=== PATIENT | female | born 1990 | race Caucasian/White ===

== ENCOUNTER 2024-05-27 13:20 | Outpatient (CLI) | payer MEDICAID ==
[~2024-05-27 13:20] MED LIST: SODI30SP3 BOTHNARES
== END 2024-05-27 23:59 | disposition home or self-care (01) ==
LOC: MRI 13:20
PROVIDERS: ATTEND Nurse Practitioner Family
DX: R20.2 Paresthesia of skin (principal); R29.2 Abnormal reflex; N39.46 Mixed incontinence
CPT/HCPCS: 70551

== ENCOUNTER 2024-06-15 16:42 | Emergency (ER) | payer MEDICAID ==
[~2024-06-15] VITALS: Ht 165.1 cm; Wt 66.2 kg
[2024-06-15 17:59] LABS: BASOPHILS # (AUTO) 0.1 X10'3 (0-0.2); BASOPHILS % (AUTO) 1.3 % (0-1); EOSINOPHILS # (AUTO) 0.3 X10'3 (0-0.9); EOSINOPHILS % (AUTO) 7.5 % (0-6); HEMATOCRIT 37.8 % (35.0-45.0); HEMOGLOBIN 12.7 g/dl (12.0-16.0); LYMPHOCYTES % (AUTO) 21.3 % (21-51); MEAN CORPUSCULAR HEMOGLOBIN 28.7 PG (27.0-31.0); MEAN CORPUSCULAR HGB CONC 33.6 g/dL (33.0-36.5); MEAN CORPUSCULAR VOLUME 85.4 FL (78-98); MEAN PLATELET VOLUME 8.4 FL (7.4-10.4); MONOCYTES # (AUTO) 0.7 X10'3 (0-0.9); MONOCYTES % (AUTO) 16.2 % (2-12); NEUTROPHILS # (AUTO) 2.4 X10'3 (1.8-7.7); NEUTROPHILS % (AUTO) 53.7 % (42-75); PLATELET COUNT 265 X10'3 (140-440); RED BLOOD COUNT 4.42 X10'6 (4.20-5.60); RED CELL DISTRIBUTION WIDTH 13.5 % (11.5-14.5); WHITE BLOOD COUNT 4.5 X10'3 (4.5-11.0)
[2024-06-15 18:05] LABS: ALANINE AMINOTRANSFERASE 21 U/L (12-78); ALBUMIN 3.6 G/DL (3.4-5.0); ALBUMIN/GLOBULIN RATIO 1.1 (1.1-1.5); ALKALINE PHOSPHATASE 83 IU/L (46-116); ANION GAP 8 (8-16); ASPARTATE AMINO TRANSFERASE 26 U/L (10-37); BILIRUBIN,TOTAL 0.3 MG/DL (0.1-1.0); BLOOD UREA NITROGEN 11 MG/DL (7-18); BUN/CREATININE RATIO 13.4 (10.0-20.0); CALCIUM 8.3 MG/DL (8.5-10.1); CHLORIDE 100 MMOL/L (99-107); CREATININE 0.82 MG/DL (0.40-0.90); GLUCOSE 92 MG/DL (70-104); LIPASE 36 U/L (16-77); POTASSIUM 3.4 MMOL/L (3.5-5.1); SODIUM 135 MMOL/L (135-145); TOTAL CARBON DIOXIDE 26.6 MMOL/L (24-32); TOTAL PROTEIN 6.9 G/DL (6.4-8.2); eCRCL 87 ML/MIN; eGFR 80 ML/MIN
[2024-06-15 18:13] LABS: BILIRUBIN,URINE NEGATIVE (Neg); CLARITY,URINE CLEAR (Clear); COLOR,URINE YELLOW (Yellow); GLUCOSE, URINE NEGATIVE (Neg); KETONES,URINE 15 mg/dl (Neg); LEUKOCYTE ESTERASE ,URINE NEGATIVE (Neg); NITRITES, URINE NEGATIVE (Neg); OCCULT BLOOD,URINE TRACE-LYSED (Neg); PH,URINE 7.5 (4.8-8.0); PROTEIN,URINE 30 mg/dl (Neg)
[2024-06-15 18:15] LABS: URINE HCG NEGATIVE (NEG)
[2024-06-15 18:29] LABS: UA COLLECTION TYPE CLN CATCH MIDSTREAM
[2024-06-15 18:33] LABS: BACTERIA,URINE FEW /HPF (Neg); RBC,URINE 0-2 /HPF (0-2); SQUAMOUS EPITHELIAL CELL,UR FEW /LPF (FEW); WBC,URINE 0-4 /HPF (0-4)
[2024-06-15 18:34] LABS: AMORPHOUS PHOSPHATES 1+
[2024-06-15] MEDS ORDERED: PROC-8 PO (18:43)
[2024-06-15 19:21] VITALS: BP 101/66; PULSE 69; RESP 16; TEMP 98.1; O2SAT 100
[2024-06-15 20:47] LABS: TOTAL CELLS COUNTED 100
[2024-06-15 20:48] LABS: PLATELET ESTIMATE NORMAL
== END 2024-06-15 19:24 | disposition home or self-care (01) ==
LOC: ER 16:42
DX: R10.84 Generalized abdominal pain (principal); G82.20 Paraplegia, unspecified; Z88.2 Allergy status to sulfonamides; Z88.0 Allergy status to penicillin; Z88.1 Allergy status to other antibiotic agents; Z88.8 Allergy status to other drugs, medicaments and biological substances; Z91.040 Latex allergy status; Z79.899 Other long term (current) drug therapy
CPT/HCPCS: 36415; 80053; 81001; 81025; 83690; 85007; 85025; 99284

== ENCOUNTER 2024-07-03 16:31 | Outpatient (CLI) | payer MEDICAID ==
[~2024-07-03 16:31] MED LIST changes: +EPIN0.3A3; +HYDR-3964 PO; +IMIQ1CRE22 TOP; +KETO120S5 TOP; +LIDO700A47 TOP; +PROC-8 PO; +PROC10TA97
[2024-07-03 18:53] LABS: MONOTEST NEGATIVE (Neg)
[2024-07-03 19:04] LABS: ALANINE AMINOTRANSFERASE 13 U/L (12-78); ALBUMIN/GLOBULIN RATIO 1.1 (1.1-1.5); ALKALINE PHOSPHATASE 85 IU/L (46-116); ANION GAP 10 (8-16); ASPARTATE AMINO TRANSFERASE 10 U/L (10-37); BILIRUBIN,TOTAL 0.4 MG/DL (0.1-1.0); BLOOD UREA NITROGEN 8 MG/DL (7-18); BUN/CREATININE RATIO 10.5 (10.0-20.0); CHLORIDE 104 MMOL/L (99-107); CREATININE 0.76 MG/DL (0.40-0.90); FREE T4 (FREE THYROXINE) 1.15 NG/DL (0.73-1.40); GLUCOSE 78 MG/DL (70-104); POTASSIUM 3.7 MMOL/L (3.5-5.1); SODIUM 138 MMOL/L (135-145); TOTAL CARBON DIOXIDE 24.1 MMOL/L (24-32); TOTAL PROTEIN 7.7 G/DL (6.4-8.2); eGFR 87 ML/MIN
[2024-07-03 19:07] LABS: C-REACTIVE PROTEIN < 0.05 MG/DL (0.0-0.5)
== END 2024-07-03 23:59 | disposition home or self-care (01) ==
LOC: LAB 16:31
PROVIDERS: ATTEND Neurological Surgery
DX: R59.1 Generalized enlarged lymph nodes (principal); R53.1 Weakness
CPT/HCPCS: 36415; 80053; 82306; 82390; 83001; 84146; 84305; 84439; 84446; 84481; 85303; 86038; 86140; 86235; 86308; 86431

== ENCOUNTER 2024-10-09 17:42 | Emergency (ER) | payer MEDICAID ==
[~2024-10-09] VITALS: Ht 165.1 cm; Wt 68.2 kg
[2024-10-09 17:45] VITALS: BP 117/66; O2SAT 97
[2024-10-09] MEDS: normal saline 1000ML IV soln IVB ONE (19:10)
[2024-10-09] MEDS: metoclopramide 5 mg/ml inj IV ONE (19:20)
[2024-10-09 19:41] LABS: BASOPHILS # (AUTO) 0.1 X10'3 (0-0.2); BASOPHILS % (AUTO) 0.9 % (0-1); EOSINOPHILS # (AUTO) 0.3 X10'3 (0-0.9); EOSINOPHILS % (AUTO) 3.9 % (0-6); HEMATOCRIT 41.5 % (35.0-45.0); HEMOGLOBIN 14.3 g/dl (12.0-16.0); LYMPHOCYTES # (AUTO) 1.9 X10'3 (1.1-4.8); LYMPHOCYTES % (AUTO) 28.9 % (21-51); MEAN CORPUSCULAR HEMOGLOBIN 29.5 PG (27.0-31.0); MEAN CORPUSCULAR HGB CONC 34.4 g/dL (33.0-36.5); MEAN CORPUSCULAR VOLUME 85.8 FL (78-98); MONOCYTES # (AUTO) 0.5 X10'3 (0-0.9); MONOCYTES % (AUTO) 7.9 % (2-12); NEUTROPHILS # (AUTO) 3.9 X10'3 (1.8-7.7); NEUTROPHILS % (AUTO) 58.4 % (42-75); PLATELET COUNT 317 X10'3 (140-440); RED BLOOD COUNT 4.84 X10'6 (4.20-5.60); RED CELL DISTRIBUTION WIDTH 13.2 % (11.5-14.5); WHITE BLOOD COUNT 6.7 X10'3 (4.5-11.0)
[2024-10-09 19:53] LABS: ALBUMIN 4.3 G/DL (3.4-5.0); ANION GAP 10 (8-16); BLOOD UREA NITROGEN 9 MG/DL (7-18); BUN/CREATININE RATIO 12.3 (10.0-20.0); CALCIUM 8.7 MG/DL (8.5-10.1); CHLORIDE 103 MMOL/L (99-107); CREATININE 0.73 MG/DL (0.40-0.90); GLUCOSE 81 MG/DL (70-104); POTASSIUM 3.7 MMOL/L (3.5-5.1); SODIUM 139 MMOL/L (135-145); TOTAL CARBON DIOXIDE 25.9 MMOL/L (24-32); eCRCL 98 ML/MIN; eGFR > 90 ML/MIN
[2024-10-09] MEDS: acetaminophen 1,000mg/100ml IV 100 ML IV ONE (20:14)
[2024-10-09 21:00] LABS: BILIRUBIN,URINE NEGATIVE (Neg); CLARITY,URINE CLEAR (Clear); COLOR,URINE YELLOW (Yellow); GLUCOSE, URINE NEGATIVE (Neg); KETONES,URINE NEGATIVE (Neg); LEUKOCYTE ESTERASE ,URINE NEGATIVE (Neg); NITRITES, URINE NEGATIVE (Neg); OCCULT BLOOD,URINE TRACE-INTACT (Neg); PROTEIN,URINE NEGATIVE (Neg); UROBILINOGEN,URINE 0.2 E.U/dL (0.2-1.0)
[2024-10-09 21:01] LABS: URINE HCG NEGATIVE (NEG)
[2024-10-09 21:03] LABS: UA COLLECTION TYPE CLN CATCH MIDSTREAM
[2024-10-09 21:16] LABS: BACTERIA,URINE FEW /HPF (Neg); RBC,URINE 0-2 /HPF (0-2); SQUAMOUS EPITHELIAL CELL,UR FEW /LPF (FEW); WBC,URINE 0-4 /HPF (0-4)
[2024-10-09] MEDS ORDERED: ONDA-245 PO (21:33)
[2024-10-09 21:36] VITALS: RESP 13; TEMP 98.2
== END 2024-10-09 21:53 | disposition home or self-care (01) ==
LOC: ER 17:43
DX: R10.30 Lower abdominal pain, unspecified (principal); Z88.0 Allergy status to penicillin; Z88.1 Allergy status to other antibiotic agents; Z88.2 Allergy status to sulfonamides; Z88.5 Allergy status to narcotic agent; Z88.6 Allergy status to analgesic agent; Z88.8 Allergy status to other drugs, medicaments and biological substances; Z91.041 Radiographic dye allergy status
CPT/HCPCS: 36415; 76700; 76830; 76856; 80048; 81001; 81025; 84145; 85025; 93976; 99284

== ENCOUNTER 2024-12-17 17:13 | Emergency (ER) | payer MEDICAID ==
[~2024-12-17] VITALS: Ht 165.1 cm; Wt 69.4 kg
[~2024-12-17 17:13] MED LIST changes: +ONDA-245 PO
[2024-12-17 17:16] VITALS: BP 124/50; PULSE 73; RESP 14; TEMP 97.3; O2SAT 98
--- NOTE | 2024-12-17 18:49 | Physician Documentation ---
History of Present Illness ~ Chief Complaint: Eye Pain Stated Complaint: L EYE PAIN Time Seen by MD: 18:09 Primary Medical Doctor: ELISA NUGENT HPI Patient is seen today with complaints of pain and irritation of her left eye after she got some glitter stuck in her left eye about three days ago. She states she had some swelling in the upper outer aspect of her left eye sclera but that has improved however now she has some pain and swelling of her inner upper eyelid of the left eye. She denies any changes in vision. She has no other concern or complaint at this time. Medication Reconciliation Allergies: Coded Allergies: sulfamethoxazole (Unverified Allergy, Severe, throat swelling, 12/17/24) trimethoprim (Unverified Allergy, Severe, throat swelling, 12/17/24) NSAIDS (Non-Steroidal Anti-Inflamma (Verified Allergy, Unknown, 12/17/24) Penicillins (Verified Allergy, Unknown, 12/17/24) Sulfa (Sulfonamide Antibiotics) (Verified Allergy, Unknown, 12/17/24) adhesive (Verified Allergy, Unknown, 12/17/24) albuterol (Verified Allergy, Unknown, 12/17/24) cephalexin (Verified Allergy, Unknown, 12/17/24) doxycycline (Unverified Allergy, Unknown, 12/17/24) iodine (Verified Allergy, Unknown, 12/17/24) latex (Verified Allergy, Unknown, 12/17/24) Scheduled Imiquimod (Imiquimod), 1 APPLIC TOP HS, (Reported) Lidocaine (Lidocaine), 1 PATCH TOP DAILY, (Reported) Neomy Sulf/Polymyx B Sulf/Hc (Vdurrzlv-Ggau-Bq Eye Drops), 1 DROP RIGHTEYE Q6H Ondansetron 8mg ODT (Ondansetron Odt), 1 TAB PO Q6H Prochlorperazine Maleate (Compazine), 1 TAB PO Q6H Sodium Chloride (Saline Nasal [place]), 1-2 SPRAYS BOTHNARES Q2H Scheduled PRN Hydrocodone Bit/Acetaminophen (Hydrocodon-Acetaminophen 5-325), 1 TAB PO Q4H PRN for pain, (Reported) Miscellaneous Medications Epinephrine (Epinephrine), 0.3 MG, (Reported) Ketoconazole (Ketoconazole), TOP, (Reported) Prochlorperazine Maleate (Prochlorperazine Maleate), (Reported) Review of Systems Constitutional: Denies: chills, fever, weakness Eyes: Denies: pain, blurred vision ENT: Denies: ear pain, nose pain, throat pain, mouth pain Respiratory: Denies: cough, shortness of breath Cardiovascular: Denies: chest pain, palpitations Gastrointestinal: Denies: abdominal pain, nausea, vomiting Genitourinary: Denies: burning, dysuria Female Genitalia: Denies: vaginal discharge, pelvic pain Neurological: Denies: headache, dizziness Musculoskeletal: Denies: pain, swelling Integumentary: Denies: rash, lesions Allergic/Immunologic: Denies: hives, itching Hematologic/Lymphatic: Denies: no symptoms reported Psychiatric: Denies: depression, anxiety Physical Exam Vital Signs: Temperature: 97.3, Heart Rate: 73, Respiratory Rate: 14, BP: 124/50, Pulse Oximetry: 98, Weight: 69.360 Physical Exam General: Awake and Alert, no acute distress. HEENT: Patient on exam does have mild swelling of the inner upper eyelid of the left eye only. I do not appreciate any foreign body. Conjunctiva pink, Sclera clear, Mucus Membranes moist. Neck: Supple without masses and tenderness. Resp: Unlabored. Lungs clear to auscultation bilaterally. Heart: Regular Rate and rhythm, normal S1 and S2 without murmur, rub or gallop. Extremities: No cyanosis,clubbing or edema. Skin: Warm and Dry. Procedures Eye Procedure Procedure Note Procedure: Two drops of proparacaine were administered into the left eye, patient tolerated well. Patient did not experience any relief of pain or discomfort afterwards. Fluorescein stain and Wood's lamp procedure did not reveal any type of defect or corneal abrasion or abnormality of the sclera. Progress Results/Orders Results/Orders Vital Signs 12/17/24 17:16 Temp 97.3 Pulse 73 Resp 14 B/P (MAP) 124/50 Pulse Ox 98 Medical Decision Making Findings Patient is seen today with complaints of pain and irritation of her left eye after she got some glitter stuck in her left eye about three days ago. She states she had some swelling in the upper outer aspect of her left eye sclera but that has improved however now she has some pain and swelling of her inner upper eyelid of the left eye. She denies any changes in vision. She has no other concern or complaint at this time. Wood's lamp examination of the left eye did not reveal any type of corneal abrasion. Patient will be treated for blepharitis and will perform warm compress two to 3 times a day and will discontinue use of beauty products of the left eye for 1-2 weeks. Patient was given prescription of neomycin polymyxin dexamethasone ointment to be used two to 3 times a day in the left eye. For one week. Patient will return to ED with any worsening, concerning or changing symptoms. Departure Disposition: 01 HOME / SELF CARE / HOMELESS Impression: Primary Impression: Swelling of eye Condition: Stable Discharge Instructions: Sty Additional Instructions: Wood's lamp examination of the left eye did not reveal any type of corneal abrasion. Patient will be treated for blepharitis and will perform warm compress two to 3 times a day and will discontinue use of beauty products of the left eye for 1-2 weeks. Patient was given prescription of neomycin polymyxin dexamethasone ointment to be used two to 3 times a day in the left eye. For one week. Patient will return to ED with any worsening, concerning or changing symptoms. Referrals: NO PRIMARY CARE PROVIDER (PCP) Prescriptions Johnathan/Polymyx B Sulf/Dexameth (Maxitrol Eye Drops) 3.5 Mg/Ml-10,000 Unit/Ml-0.1 % Drops.susp 1 DROP RIGHTEYE Q6H for 7 Days, #5 ML Prov: EDILBERTO BURTON NP 12/18/24 Neomy Sulf/Polymyx B Sulf/Hc (Wyrbfsvl-Ypeb-Gz Eye Drops) 3.5 Mg-10,000 Unit-10 Mg/Ml Drops.susp 1 DROP RIGHTEYE Q6H for 5 Days, #10 ML 0 Refills Prov: LI CALHOUN 12/17/24 Education Educated: Patient Educated regarding: diagnosis, treatment, prognosis, need for follow up Signature Scribe Signature: No scribe Attestation: No scribe no scribe LI CALHOUN December 17, 2024 18:48 EDILBERTO BURTON NP December 18, 2024 11:23
[2024-12-17] MEDS ORDERED: COROS RIGHTEYE (19:26)
[2024-12-17] MEDS: neomy/polymyx B/dexamethasone ophth ointment 3.5gm LEFTEYE STA (19:36)
[2024-12-17] MEDS: neomy sulf/polymyx B sulf/HC 7.5ml ophthalmic suspension LEFTEYE STA (19:40)
[2024-12-18] MEDS ORDERED: NEO/5DRO3 RIGHTEYE (11:23)
== END 2024-12-17 19:42 | disposition home or self-care (01) ==
LOC: ER 17:14
DX: H01.004 Unspecified blepharitis left upper eyelid (principal); Z88.2 Allergy status to sulfonamides; Z88.0 Allergy status to penicillin; Z88.1 Allergy status to other antibiotic agents; Z91.041 Radiographic dye allergy status; Z88.8 Allergy status to other drugs, medicaments and biological substances; Z91.040 Latex allergy status; Z79.899 Other long term (current) drug therapy
CPT/HCPCS: 99284